=== PATIENT | male | born 1985 | race Caucasian/White ===

== ENCOUNTER 2019-06-16 02:49 | Emergency (ER) | payer BC ==
[~2019-06-16] VITALS: Ht 182.9 cm; Wt 83.9 kg
--- NOTE | 2019-06-16 03:15 | NUR ---
BIBS FOR C/O ANXIETY FOR THE PAST FEW HRS. REPORTED FEELING BETTER . DID NOT REC'D ANY MEDICATION AT HOME. DENIED SOB OR PALPITATION. PT WAS PLACED ON A MONITOR. WARM BLANKET AND QUIET ENVIRONMENET WAS PROVIDED TO THE PT. WILL CONT TO MONITOR ,
--- NOTE | 2019-06-16 04:45 | NUR ---
PT IN BED AWAKE AND ALERT. RESTING COMFORTABLY AND REPORTED FEELING MUCH BETTER AND WILLING TO LEAVE.
[2019-06-16 05:07] VITALS: BP 141/79
--- NOTE | 2019-06-16 05:07 | NUR ---
Patient discharged to home in stable condition. Written and verbal after care instructions given. Patient verbalizes understanding of instruction.
== END 2019-06-16 05:07 | disposition home or self-care (01) ==
LOC: ER 02:58
DX: F41.9 Anxiety disorder, unspecified (principal); Z98.890 Other specified postprocedural states